=== PATIENT | male | born 1950 | race Caucasian/White ===

== ENCOUNTER 2016-11-14 11:30 | Emergency (ER) | payer OTHER ==
[2016-11-14 11:41] VITALS: BP 161/90; PULSE 88; TEMP 98.1; BMI 30.5
[2016-11-14] MEDS ORDERED: DIPHTH,PERTUSS(ACELL),TET 0.5 ML DISP.SYRIN IM ONE (12:14)
--- NOTE | 2016-11-14 12:14 | PDOC ---
History of Present Illness - General Chief Complaint: Injury Stated Complaint: LEFT EYEBROW LACERATION Time Seen by Provider: 11/14/16 11:47 - History of Present Illness Initial Comments: 11/14/16 12:10 66 yo M s/p left eyebrow laceration. hit eyebrow on upper door, no loc. c/o pain at site, laceration . bleeding controlled with pressure. no n/v mild pain. no headache. last tetanus unknown. no mod factors. no other injureis. no neck or back pain. Past History - Past Medical History Allergies/Adverse Reactions: Allergies Allergy/AdvReac Type Severity Reaction Status Date / Time Penicillins Allergy Mild Verified 11/12/11 12:33 Home Medications: Ambulatory Orders Aspirin 81 mg PO DAILY 11/12/11 Crestor 5 mg PO HS 11/12/11 Metoprolol Succinate 25 mg PO DAILY 11/12/11 Anemia: No Asthma: No Cancer: No Cardiac Disorders: No CVA: No COPD: No CHF: No Dementia: No Diabetes: No GI Disorders: Yes (COLONIC POLYPS) Disorders: No HTN: Yes Hypercholesterolemia: Yes Liver Disease: No Seizures: No Thyroid Disease: No - Surgical History Abdominal Surgery: No Appendectomy: No Cardiac Surgery: No Cholecystectomy: No Lung Surgery: No Neurologic Surgery: No Orthopedic Surgery: No - Immunization History Immunization Up to Date: Yes - Psycho/Social/Smoking Cessation Hx Suicidal Ideation: No Smoking History: Never smoked Have you smoked in the past 12 months: No Information on smoking cessation initiated: No Hx Alcohol Use: No Drug/Substance Use Hx: No Substance Use Type: None Hx Substance Use Treatment: No Review of Systems - Review of Systems Constitutional: No: Chills, Diaphoresis HEENTM: Yes: Other (eyebrow laceration). No: Eye Pain, Blurred Vision Respiratory: No: Cough, Orthopnea Cardiac (ROS): No: Chest Pain, Edema : No: Burning Integumentary: Yes: Other (laceration left eyebrow) Neurological: No: Headache, Numbness All Other Systems: Reviewed and Negative *Physical Exam - Vital Signs Last Vital Signs Temp Pulse Resp BP Pulse Ox 98.1 F 88 20 161/90 98 11/14/16 11:11/14/16 11:11/14/16 11:11/14/16 11:11/14/16 11:31 - Physical Exam General Appearance: Yes: Nourished, Appropriately Dressed HEENT: positive: Other (left eyebrow stellate laceration into sub cut. no bony step off. EOMI, no eccymosis. PERRL.) Neck: positive: Trachea midline Respiratory/Chest: positive: Lungs Clear, Normal Breath Sounds Cardiovascular: positive: Regular Rhythm, Regular Rate, S1, S2 Musculoskeletal: positive: Normal Inspection, Other (no midline spinal tenderness.) Integumentary: positive: Normal Color, Dry, Warm, Other (stellate laceration left eyebrow, medial border. irregular. small laceration left lateral eye lid) Neurologic: positive: Fully Oriented, Alert, Normal Mood/Affect, Motor Strength 5/5, Other (GCS 15) Procedures - Laceration/Wound Repair Left Upper Medial Face Wound Length: to 2.5 cm Wound Explored: clean Wound's Depth, Shape: irregular, stellate Irrigated w/ Saline: Yes Betadine Prep: No Anesthesia: 2% Lidocaine, 2% Lidocaine w/ Epi Wound Debrided: minimal Wound Repaired With: Sutures Suture Size/Type: 6:0 Number of Sutures: 8 Medical Decision Making - Medical Decision Making 11/14/16 12:14 66 yo M with h/o HTN HLD here wtih left stellate laceration eyebrow. plan tetanus, suture repair , outpt followup. *DC/Admit/Observation/Transfer Diagnosis at time of Disposition: Laceration - Discharge Dispostion Disposition: HOME Admit: No - Patient Instructions Printed Discharge Instructions: DI for Suture Removal Additional Instructions: leave suture in place . keep clean and dry for 24 - 48 hours . keep out of sun. apply bacitracin twice daily or triple antiobiotics ointment. return in 5 days for suture removal. return sooner for signs of infection including fever, redness, swelling or yellow discharge.
[2016-11-14] MEDS ORDERED: LIDO 2%/EPI 1:200000 PRESRVFRE (20 ML SDVIAL) EP ONE (12:15)
[2016-11-14] MEDS ORDERED: LIDO 2%/EPI 1:200000 PRESRVFRE (20 ML SDVIAL) ONE (12:16)
== END 2016-11-14 13:11 | disposition home or self-care (01) ==
LOC: FER 11:30
PROC: 0HQ1XZZ Repair Face Skin, External Approach (ICD-10-PCS; principal; 2016-11-14)
DX: S01.112A Laceration without foreign body of left eyelid and periocular area, initial encounter (principal); W22.03XA Walked into furniture, initial encounter; Y93.9 Activity, unspecified; Y92.9 Unspecified place or not applicable; I10 Essential (primary) hypertension; E78.00 Pure hypercholesterolemia, unspecified
CPT/HCPCS: 12011-25; 90715; 99282-25

== ENCOUNTER 2016-11-19 12:38 | Emergency (ER) | payer OTHER ==
[2016-11-19 12:43] VITALS: BP 149/87; PULSE 81; TEMP 98.1; BMI 29.7
--- NOTE | 2016-11-19 12:56 | PDOC ---
Suture Removal/Wound Check HPI - History of Present Illness Chief Complaint: Suture/Staple Removal (other) Stated Complaint: suture removal Time Seen by Provider: 11/19/16 12:42 History Source: Yes: Patient, Old Records Exam Limitations: Yes: No Limitations - Previous ED Treatment Type of procedure performed on last visit: Yes: Laceration Repair - Onset of Previous Treatment Comment:: 11/19/16 12:56 66 y/o male seen on 11/14/2016 with laceration to the left eyebrow after being hit with a spring. He received sutures and has felt well. He denies pain, swelling or purulent drainage to the wound. He has had no change in his vision or fevers or chills. Past History - Past Medical History Allergies/Adverse Reactions: Allergies Penicillins Allergy (Mild, Verified 11/19/16 12:39) Home Medications: Ambulatory Orders Aspirin [ASA -] 81 mg PO DAILY 11/19/16 Metoprolol Succinate [Toprol Xl -] 25 mg PO DAILY 11/19/16 Rosuvastatin Calcium [Crestor] 5 mg PO DAILY 11/19/16 - Immunization History Immunizations Up to Date: Yes Tetanus Status: More than 5 years - Social History Smoking Status: Never smoked Suture Removal/Wound Check PE - Physical Exam Laceration/Wound Check Symptoms: reports: None Pain Intensity: 0 Location of Laceration/Wound: left: Face (left medial eyebrow) *Review of Systems - Review of Systems Able to Perform ROS?: Yes Constitutional: No: Symptoms Reported HEENTM: No: Symptoms Reported Integumentary: No: Symptoms Reported Neurological: No: Symptoms reported Medical Decision Making - Medical Decision Making 11/19/16 12:58 66 y/o male presents to the ED requesting suture removal. The wound is well healed and has no signs of infection. Eight sutures were removed without complication. Wound care was discussed with the patient. Follow-up with primary care physician and return to the ED if Sx persist, worsen or new Sx arise. *DC/Admit/Observation/Transfer Diagnosis at time of Disposition: Visit for suture removal - Discharge Dispostion Disposition: HOME Condition at time of disposition: Stable Admit: No - Patient Instructions Printed Discharge Instructions: DI for Suture Removal Additional Instructions: Follow-up with primary care physician. Return to the ED if wound appears red, swollen, purulent drainage or any other symptoms.
== END 2016-11-19 13:04 | disposition home or self-care (01) ==
LOC: FER 12:38
DX: Z48.02 Encounter for removal of sutures (principal)
CPT/HCPCS: 99281-25